=== PATIENT | female | born 1985 ===

== ENCOUNTER 2024-06-10 20:33 | Emergency (ER) | payer BC ==
[2024-06-10] MEDS: Ketorolac 30 MG/ML SDV IM ONE (21:45)
== END 2024-06-10 22:21 | disposition home or self-care (01) ==
LOC: JD.ED 20:33
DX: S82.65XA Nondisplaced fracture of lateral malleolus of left fibula, initial encounter for closed fracture (principal); S93.401A Sprain of unspecified ligament of right ankle, initial encounter; X50.1XXA Overexertion from prolonged static or awkward postures, initial encounter
CPT/HCPCS: 73610; 96372; 99283; J1885